=== PATIENT | female | born 1960 | race Caucasian/White ===

== ENCOUNTER 2020-10-31 02:44 | Emergency (ER) | payer MEDICARE ==
[~2020-10-31 02:44] MED LIST: ALDACTONE50 MG PO; CEFUROXIME500 MG PO; CLARITIN10 MG PO; ECOTRIN81 MG PO; GLUCOTROL 10 MG10 MG PO; LIPITOR TAB 2020 MG PO; METFORMIN HCL1000 M1 PO; NEURONTIN 300300 MG PO; OMEPRAZOLE20 MG PO; PYRIDIUM200 MG PO; TOPROL XL200 MG PO; TRULICITY0.75 MG/0. SQ; ZOLOFT100 MG PO
[2020-10-31 07:42] LABS: HEMOGLOBIN 11.5 gm/dl (12.3-15.3); RED BLOOD COUNT 4.02 M/UL (4.00-5.10); WHITE BLOOD COUNT 7.6 K/UL (4.5-11.0)
[2020-10-31 07:58] LABS: BUN/CREATININE RATIO 19 (0-10)
[2020-10-31] MEDS ORDERED: CATAPRES 0.1MG0.1 MG PO (09:08)
== END 2020-10-31 09:00 | disposition home or self-care (01) ==
LOC: ER1 02:44
PROVIDERS: Emergency Medicine
DX: I10 Essential (primary) hypertension (principal); R51.9 Headache, unspecified; F41.9 Anxiety disorder, unspecified; E11.9 Type 2 diabetes mellitus without complications; E78.5 Hyperlipidemia, unspecified; F17.200 Nicotine dependence, unspecified, uncomplicated; Z90.710 Acquired absence of both cervix and uterus
CPT/HCPCS: 70450; 71045; 80053; 82550; 82553; 83874; 84484; 85025; 93005; 99284

== ENCOUNTER 2020-11-03 21:18 | Emergency (ER) | payer MEDICARE ==
[~2020-11-03 21:18] MED LIST changes: +CATAPRES 0.1MG0.1 MG PO
[2020-11-03 21:36] LABS: HEMOGLOBIN 12.3 gm/dl (12.3-15.3); RED BLOOD COUNT 4.11 M/UL (4.00-5.10); WHITE BLOOD COUNT 10.3 K/UL (4.5-11.0)
[2020-11-03 22:05] LABS: BUN/CREATININE RATIO 25 (0-10)
== END 2020-11-03 23:03 | disposition short-term general hospital (02) ==
LOC: ER1 21:18
PROVIDERS: Emergency Medicine
DX: I63.9 Cerebral infarction, unspecified (principal); R20.2 Paresthesia of skin; I10 Essential (primary) hypertension; E11.9 Type 2 diabetes mellitus without complications; F17.210 Nicotine dependence, cigarettes, uncomplicated; Z88.8 Allergy status to other drugs, medicaments and biological substances; Z72.89 Other problems related to lifestyle; Z20.822 Contact with and (suspected) exposure to COVID-19
CPT/HCPCS: 70450; 71045; 80053; 82550; 82553; 82962; 84484; 85025; 85610; 85730; 93005; 96374; 99285; J2997; Q9967; U0002

== ENCOUNTER → 2020-12-09 | Outpatient (CLI) | payer MEDICARE | LOC: HEART 5 09:09 | DX: I63.9 Cerebral infarction, unspecified (principal); R00.2 Palpitations ==

== ENCOUNTER 2021-03-09 16:29 | Emergency (ER) | payer MEDICARE ==
[2021-03-09 19:16] LABS: HEMOGLOBIN 11.6 gm/dl (12.3-15.3); RED BLOOD COUNT 3.85 M/UL (4.00-5.10); WHITE BLOOD COUNT 7.8 K/UL (4.5-11.0)
[2021-03-09 19:51] LABS: BUN/CREATININE RATIO 20 (0-10)
== END 2021-03-10 00:40 | disposition home or self-care (01) ==
LOC: ER1 16:29
PROVIDERS: Physician Assistant
DX: R06.00 Dyspnea, unspecified (principal); M79.602 Pain in left arm; E11.9 Type 2 diabetes mellitus without complications; I10 Essential (primary) hypertension; Z86.73 Personal history of transient ischemic attack (TIA), and cerebral infarction without residual deficits; E78.5 Hyperlipidemia, unspecified; Z86.16 Personal history of COVID-19; Z88.8 Allergy status to other drugs, medicaments and biological substances; Z90.710 Acquired absence of both cervix and uterus
CPT/HCPCS: 71045; 80053; 82550; 82553; 83874; 83880; 84484; 85025; 85379; 85610; 85730; 99285

== ENCOUNTER → 2021-03-11 | Outpatient (CLI) | payer MEDICARE | LOC: RAD 16:20 | DX: M25.512 Pain in left shoulder (principal) | CPT/HCPCS: 73030 ==

== ENCOUNTER → 2022-02-16 | Outpatient (CLI) | payer MEDICARE | LOC: HEART 5 09:00 | DX: R00.2 Palpitations (principal) ==